=== PATIENT | male | born 1965 | race Caucasian/White ===

== ENCOUNTER 2019-03-01 13:54 | Observation (INO) | payer OTHER ==
--- NOTE | 2019-03-01 14:13 | PDOC ---
Rapid Medical Evaluation Chief Complaint: Weakness Time Seen by Provider: 03/01/19 14:10 Medical Evaluation: Allergies Allergy/AdvReac Type Severity Reaction Status Date / Time No Known Allergies Allergy Verified 03/01/19 14:08 03/01/19 14:10 I have performed a brief in-person evaluation of this patient. The patient presents with a chief complaint of: h/o Pre-Dm, HTN, HLD, c/o 1 day of lightheadedness, nausea, vomiting. no CP, no SOB, no abdominal pain, no known sick contacts, no recent travel. Pertinent physical exam findings: high blood pressure, Clear vomitus in triage, (+)nystagmus and dysmetria. WIll call Code Chang I have ordered the following: EKG, CBC, CMP, fingerstick, cardiac enzymes, CXR, Head CT The patient will proceed to the ED for further evaluation. 03/01/19 14:22 Discharge Disposition - Diagnosis Lightheadedness - Referrals - Patient Instructions - Post Discharge Activity
--- NOTE | 2019-03-01 14:17 | PDOC ---
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 He denies nay recent illness or travel and has never experienced similar symptoms. He has no other complaints and feels nauseous when sitting up. He has no other complaints. ROS GENERAL/CONSTITUTIONAL: No fever or chills. No weakness. HEAD, EYES, EARS, NOSE AND THROAT: No change in vision. No ear pain or discharge. No sore throat. CARDIOVASCULAR: No chest pain or shortness of breath RESPIRATORY: No cough, wheezing, or hemoptysis. GASTROINTESTINAL: + nausea, vomiting, No diarrhea or constipation. GENITOURINARY: No dysuria, frequency, or change in urination. MUSCULOSKELETAL: No joint or muscle swelling or pain. No neck or back pain. SKIN: No rash NEUROLOGIC: No headache, + vertigo, No loss of consciousness, or change in strength/sensation. PE GENERAL: Awake, alert, and fully oriented, in no acute distress, slight left nasolabial fold flattening HEAD: No signs of trauma, normocephalic, atraumatic EYES: eomi, + horizontal nystagmus, sclera anicteric, conjunctiva clear ENT: oropharynx clear without exudates. Moist mucosa NECK: Normal ROM, supple LUNGS: No distress, speaks full sentences, clear to auscultation bilaterally HEART: Regular rate and rhythm, normal S1 and S2, no murmurs, rubs or gallops, peripheral pulses normal and equal bilaterally. ABDOMEN: Soft, nontender, No guarding, no rebound. No masses EXTREMITIES : Normal inspection, Normal range of motion, no edema. No clubbing or cyanosis. NEUROLOGICAL: Cranial nerves II through XII grossly intact. Normal speech, no focal sensorimotor deficits, severe unsteadiness on gait, finger to nose and heel to biswas unimpaired SKIN: Warm, Dry, normal turgor, no rashes or lesions noted MDM DDX including but not limited to: posterior stroke, peripheral vertigo including menieres disease vs labrynthitis vs BPPV W/U: - cbc, cmp, caogs, ekg, cxr, head ct TX: - meclizine, zofran, ativan ED Course: code hernandez called ekg nsr at 44bpm pending neurology callback [id number]: Neurology Dr. Boyd discussed case, recommend admission and MRI/MRA, no tPA Labs wnl, plan for admission Kathrine Guzman, PGY2 Emergency Medicine Past History - Past Medical History Allergies/Adverse Reactions: Allergies Allergy/AdvReac Type Severity Reaction Status Date / Time No Known Allergies Allergy Verified 03/01/19 14:08 COPD: No Diabetes: No (PRE DIABETIC) HTN: Yes Hypercholesterolemia: Yes - Immunization History Immunization Up to Date: Yes - Psycho Social/Smoking Cessation Hx Smoking History: Never smoked Hx Alcohol Use: No Drug/Substance Use Hx: No *Physical Exam - Vital Signs Last Vital Signs Temp Pulse Resp BP Pulse Ox 98.2 F 47 L 18 187/101 H 100 03/01/19 14:09 03/01/19 14:09 03/01/19 14:09 03/01/19 14:09 03/01/19 14:09 ED Treatment Course - LABORATORY CBC & Chemistry Diagram: 03/01/19 15:06 03/01/19 15:06 Discharge - Discharge Information Problems reviewed: Yes Clinical Impression/Diagnosis: Lightheadedness, Vertigo, Nystagmus Condition: Stable Disposition: HOME - Admission Yes - Follow up/Referral - Patient Discharge Instructions - Post Discharge Activity
--- NOTE | 2019-03-01 14:31 | PDOC ---
Attending Attestation - Resident Resident Name: Kathrine Guzman - ED Attending Attestation I have performed the following: I have examined & evaluated the patient, The case was reviewed & discussed with the resident, I agree w/resident's findings & plan, Exceptions are as noted - HPI HPI: 03/01/19 14:27 Mr. [place] Elaine is a 53 yo man with a history of h/o Pre-Dm, HTN, HLD, c /o sudden onset of lightheadedness, nausea, vomiting. No headache No chest pain No palpitations Symptoms have been present since noon. Occurred while patient was at work. 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 No prior episodes like this 03/01/19 15:12 - Physicial Exam PE: 03/01/19 14:28 GENERAL: The patient is in no acute distress. ENT: Ears normal, nares patent, oropharynx clear without exudates. Moist mucous membranes. NECK: Normal range of motion, supple LUNGS: Breath sounds equal, clear to auscultation bilaterally. No wheezes, and no crackles. HEART:Regular rate and rhythm, normal S1 and S2 without murmur, rub or gallop. ABDOMEN: Soft, nontender, normoactive bowel sounds. EXTREMITIES: Normal range of motion, no edema. NEUROLOGICAL: Cranial nerves II through XII grossly intact. Normal speech. Patient has horizontal nystagmus. No other cranial nerve deficit. Does have questionable flattening of the right nasolabial fold No sensory deficits Motor strength is 5/5 in all extremities See NIHSS SKIN: Warm, Dry, normal turgor, no rashes or lesions noted. 03/01/19 15:12 - Critical Care Time Total Critical Care Time: 60 Critical Care Statement: The care of this patient involved high complexity decision making to prevent further life threatening deterioration of the patient 's condition and/or to evaluate & treat vital organ system(s) failure or risk of failure. - Medical Decision Making 03/01/19 14:28 53 yo M with risk factors presenting with sudden onset of generalized weakness, nystagmus, vertigo. Differential diagnosis includes but is not limited to: Benign positional vertigo, Mnire's disease, posterior stroke, vertebral artery dissection, intracranial mass, intracranial hemorrhage We will do: Patient was made a "code benjamin" Labs EKG Chest x-ray IV fluids Neurology consult Reassess EKG: Sinus rhythm, rate of 44 bpm, axis is normal, intervals are normal, no ST elevation or depression Sinus bradycardia 03/01/19 15:11 Unable to ambulate this patient I have sat him up He becomes very vertiginous and vomits Awaiting callback from neurology Meclizine, Ativan and Zofran ordered 03/01/19 15:14 03/01/19 15:49 Laboratory Tests 03/01/19 03/01/19 15:06 15:06 WBC 10.5 H Hgb 14.7 Hct 44.3 Plt Count 238 Alcohol, Quantitative < 3.0 03/01/19 15:49 Case reviewed with Neuro They agree with plan NOT TO TPA Plan for MRI, MRA 03/01/19 16:24 Laboratory Tests 03/01/19 15:06 BUN 16.1 Creatinine 0.8 Creatine Kinase 51 Troponin I < 0.02
[2019-03-01] MEDS ORDERED: ONDANSETRON 4 MG/2 ML VIAL IVPUSH ONE (15:05)
[2019-03-01] MEDS ORDERED: MECLIZINE HCL 25 MG TABLET (FP) PO ONE (15:11)
[2019-03-01 15:15] LABS: BASO % 0.6 % (0-2.0); EOS % 0.6 % (0-4.5); HEMATOCRIT 44.3 % (35.4-49); HEMOGLOBIN 14.7 GM/dL (11.7-16.9); LYMPH % 10.7 % (8-40); MCH 28.7 pg (25.7-33.7); MCHC 33.1 g/dl (32.0-35.9); MEAN CELL VOLUME 86.5 fl (80-96); MEAN PLT VOLUME 9.5 fl (7.5-11.1); MONO % 5.2 % (3.8-10.2); NEUT % 82.9 % (42.8-82.8); PLATELET COUNT 238 K/MM3 (134-434); RBC 5.12 M/mm3 (4.00-5.60); RDW 13.8 % (11.9-15.9); WHITE BLOOD COUNT 10.5 K/mm3 (4.0-10.0)
[2019-03-01] MEDS ORDERED: MECLIZINE HCL 25 MG TABLET (FP) ONE (15:28)
[2019-03-01] MEDS ORDERED: LORazepam 2 MG/ML SDV VIAL ONE (15:29)
[2019-03-01] MEDS ORDERED: ONDANSETRON 4 MG/2 ML VIAL ONE (15:29)
[2019-03-01] MEDS ORDERED: ASPIRIN 81 MG CHEWABLE TABLETS PO ONE (15:46)
[2019-03-01] MEDS ORDERED: ASPIRIN 81 MG CHEWABLE TABLETS ONE (15:54)
[2019-03-01 15:56] LABS: ALBUMIN 4.2 g/dl (3.4-5.0); ALK PHOS 119 U/L (45-117); ANION GAP 5 MMOL/L (8-16); BILIRUBIN,TOTAL 0.6 mg/dL (0.2-1); BLOOD UREA NITROGEN 16.1 mg/dL (7-18); CALCIUM 8.9 mg/dL (8.5-10.1); CHLORIDE 103 mmol/L (98-107); CO2 30 mmol/L (21-32); CREATININE 0.8 mg/dL (0.55-1.3); GLUCOSE,RANDOM 132 mg/dL (74-106); PHOSPHOROUS 2.7 mg/dL (2.5-4.9); POTASSIUM 3.5 mmol/L (3.5-5.1); SGOT/AST 22 U/L (15-37); SGPT/ALT 28 U/L (13-61); SODIUM 138 mmol/L (136-145); TOT PROT 7.3 g/dl (6.4-8.2)
[2019-03-01 16:15] LABS: URINE APPEARANCE CLEAR; URINE BILIRUBIN NEGATIVE (NEGATIVE); URINE COLOR YELLOW; URINE GLUCOSE (UA) NEGATIVE (NEGATIVE); URINE KETONE NEGATIVE (NEGATIVE); URINE LEUK ESTERASE NEGATIVE (NEGATIVE); URINE NITRITE NEGATIVE (NEGATIVE); URINE PROTEIN NEGATIVE (NEGATIVE); URINE UROBILINOGEN 0.2 mg/dL (0.2-1.0)
[2019-03-01 16:30] LABS: COCAINE, UR NEGATIVE ng/ml (CUTOFF=300); METHADONE, UR NEGATIVE ng/ml (CUTOFF=300); OPIATES, URI NEGATIVE ng/ml (CUTOFF=300); PHENCYCLIDINE,URINE NEGATIVE ng/ml (CUTOFF=25); URINE AMPHETAMINES NEGATIVE ng/ml (CUTOFF=500); URINE BARBITURATES NEGATIVE ng/ml (CUTOFF=200); URINE BENZODIAZEPINES NEGATIVE ng/ml (CUTOFF=200)
--- NOTE | 2019-03-01 19:18 | HP ---
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 He denies nay recent illness or travel and has never experienced similar symptoms. He has no other complaints and feels nauseous when sitting up. He has no other complaints. - Past Medical History Cardiovascular: Yes: HTN, Hyperlipdemia - Smoking History Smoking history: Never smoked - Alcohol/Substance Use Hx Alcohol Use: No Home Medications - Allergies Allergies/Adverse Reactions: Allergies Allergy/AdvReac Type Severity Reaction Status Date / Time No Known Allergies Allergy Verified 03/01/19 14:08 - Home Medications Home Medications: Ambulatory Orders Amlodipine Besylate [Norvasc -] 10 mg PO DAILY 03/01/19 Atorvastatin Ca [Lipitor] 40 mg PO HS 03/01/19 Lisinopril/Hydrochlorothiazide [Lisinopril-Hctz 10-12.5 mg Tab] 1 each PO DAILY 03/01/19 Physical Examination Vital Signs: Vital Signs Temperature 98.2 F 03/01/19 14:09 Pulse Rate 46 L 03/01/19 16:00 Respiratory Rate 18 03/01/19 16:00 Blood Pressure 147/72 03/01/19 16:00 O2 Sat by Pulse Oximetry (%) 98 03/01/19 16:00 Constitutional: Yes: No Distress HENT: Yes: Atraumatic Neck: Yes: Supple Cardiovascular: Yes: Regular Rate and Rhythm Respiratory: Yes: CTA Bilaterally Gastrointestinal: Yes: Normal Bowel Sounds Extremities: Yes: WNL Edema: No Neurological: Yes: Alert, Oriented Labs: CBC, BMP 03/01/19 15:06 03/01/19 15:06 Problem List - Problems (1) HTN (hypertension) Assessment/Plan: on meds monitor Code(s): I10 - ESSENTIAL (PRIMARY) HYPERTENSION Qualifiers: Hypertension type: essential hypertension Qualified Code(s): I10 - Essential (primary) hypertension (2) Hypercholesterolemia Assessment/Plan: on meds Code(s): E78.00 - PURE HYPERCHOLESTEROLEMIA, UNSPECIFIED (3) Lightheadedness Assessment/Plan: pt eval Code(s): R42 - DIZZINESS AND GIDDINESS (4) Vertigo Assessment/Plan: on meclizine pt eval Code(s): R42 - DIZZINESS AND GIDDINESS Assessment/Plan Active Medications Generic Name Dose Route Start Last Admin Trade Name Freq PRN Reason Stop Dose Admin Acetaminophen 650 mg 03/01/19 19:20 Tylenol - PO Q6H PRN FEVER Amlodipine Besylate 10 mg 03/02/19 10:00 03/03/19 10:32 Norvasc - PO 10 mg DAILY ALBERTO Administration Atorvastatin Calcium 40 mg 03/01/19 22:00 03/02/19 21:16 Lipitor - PO 40 mg HS ALBERTO Administration Hydrochlorothiazide 12.5 mg 03/02/19 10:00 03/03/19 10:32 Hctz - PO 12.5 mg DAILY ALBERTO Administration Lisinopril 10 mg 03/02/19 10:00 03/03/19 10:32 Prinivil PO 10 mg DAILY ALBERTO Administration Ondansetron HCl 4 mg 03/01/19 19:20 Zofran Injection IVPB Q4H PRN NAUSEA AND/OR VOMITING
[2019-03-01] MEDS ORDERED: ONDANSETRON 4 MG/2 ML VIAL IVPB PRN (19:20)
[2019-03-01] MEDS ORDERED: ACETAMINOPHEN 325 MG TABLET (FP) PO PRN (19:20)
[2019-03-01] MEDS ORDERED: MECLIZINE HCL 25 MG TABLET (FP) PO SCH (19:30)
[2019-03-01] MEDS ORDERED: ATORVASTATIN CA 40 MG TABLET (FP) ONE (22:53)
[2019-03-01] MEDS ORDERED: MECLIZINE HCL 12.5 MG TABLET ONE (22:53)
[2019-03-01] MEDS: ATORVASTATIN CA 40 MG TABLET (FP) PO SCH (22:56)
[2019-03-01] MEDS: MECLIZINE HCL 25 MG TABLET (FP) PO SCH (22:56)
[2019-03-02] MEDS: HYDROCHLOROTHIAZIDE 12.5 MG CAPSULE (FP) PO SCH (09:13)
[2019-03-02] MEDS: MECLIZINE HCL 25 MG TABLET (FP) PO SCH ×4 (09:13→21:16)
[2019-03-02] MEDS: amLODIPine BESYLATE 10 MG TABLET (FP) PO SCH (09:13)
[2019-03-02] MEDS: LISINOPRIL 10 MG TABLET (FP) PO SCH (09:13)
[2019-03-02] MEDS ORDERED: PATIENT'S OWN MEDICATION (NON-FORMULARY) (Lisinopril/Hydrochlorothiazide [Lisinopril-Hctz PO SCH (10:00)
--- NOTE | 2019-03-02 11:19 | CON.CARD ---
Consult Consult Specialty:: Cardiology Referred by:: Dr. Ortiz Reason for Consultation:: Cardiac evaluation - History of Present Illness Chief Complaint: Dizziness History of Present Illness: Patient is a 53 year old male with underlying history of pre-diabetes mellitus, HTN and hypercholesterolemia who presented to ED with dizziness referable to possible vertigo, episode of nausea, vomiting and unsteadiness which began suddenly yesterday. He states that he feels better today. He denies chest pain, shortness of breath or palpitations. He denies paroxysmal nocturnal dyspnea or orthopnea. He denies fever or chills. He denies nausea, vomiting, diarrhea or abdominal pain at this time. He denies headache or lightheadedness at this time. He denies prior syncopal episodes. - History Source History Provided By: Patient, Medical Record Limitations to Obtaining History: Language Barrier (assistance by acquisition manager) - Past Medical History Cardio/Vascular: Yes: HTN, Hyperlipdemia Endocrine: Yes: Diabetes Mellitus (Pre-diabetes ) - Past Surgical History Past Surgical History: Yes: None - Alcohol/Substance Use Hx Alcohol Use: No - Smoking History Smoking history: Never smoked Home Medications - Allergies Allergies/Adverse Reactions: Allergies Allergy/AdvReac Type Severity Reaction Status Date / Time No Known Allergies Allergy Verified 03/01/19 14:08 - Home Medications Home Medications: Ambulatory Orders Amlodipine Besylate [Norvasc -] 10 mg PO DAILY 03/01/19 Atorvastatin Ca [Lipitor] 40 mg PO HS 03/01/19 Lisinopril/Hydrochlorothiazide [Lisinopril-Hctz 10-12.5 mg Tab] 1 each PO DAILY 03/01/19 Family Medical History Other Family History: CAD, HTN Review of Systems - Review of Systems Constitutional: denies: Chills, Fever Cardiovascular: denies: Chest Pain, Palpitations, Shortness of Breath Respiratory: denies: Cough, Hemoptysis, Orthopnea, PND, SOB, SOB on Exertion, Wheezing Gastrointestinal: denies: Abdominal Pain, Constipation, Diarrhea, Melena, Nausea , Rectal Bleeding, Vomiting Genitourinary: denies: Dysuria, Hematuria Musculoskeletal: denies: Joint Pain Neurological: reports: Dizziness. denies: Headache, Seizure, Syncope Vital Signs: Vital Signs Temperature 98.7 F 03/02/19 08:50 Pulse Rate 83 03/02/19 08:50 Respiratory Rate 18 03/02/19 08:50 Blood Pressure 156/96 03/02/19 08:50 O2 Sat by Pulse Oximetry (%) 99 03/02/19 08:51 Eyes: Yes: PERRL HENT: Yes: Atraumatic Neck: Yes: Supple Respiratory: Yes: CTA Bilaterally Gastrointestinal: Yes: Normal Bowel Sounds, Soft. No: Tenderness Cardiovascular: Yes: Regular Rate and Rhythm JVD: No PMI: Non-Displaced Heart Sounds: Yes: S1, S2 Murmur: No: Systolic Murmur, Diastolic Murmur Edema: No - Other Data Labs, Other Data: CBC, BMP 03/01/19 15:06 03/01/19 15:06 Troponin, BNP 03/01/19 15:06 Troponin I < 0.02 Laboratory Results - last 24 hr 03/01/19 03/01/19 03/01/19 14:19 15:06 15:06 WBC 10.5 H RBC 5.12 Hgb 14.7 Hct 44.3 MCV 86.5 MCH 28.7 MCHC 33.1 RDW 13.8 Plt Count 238 MPV 9.5 Absolute Neuts (auto) 8.7 H Neutrophils % 82.9 H Lymphocytes % 10.7 Monocytes % 5.2 Eosinophils % 0.6 Basophils % 0.6 Nucleated RBC % 0 Sodium Potassium Chloride Carbon Dioxide Anion Gap BUN Creatinine Est GFR (CKD-EPI)AfAm Est GFR (CKD-EPI)NonAf POC Glucometer 136 Random Glucose Calcium Phosphorus Magnesium Total Bilirubin AST ALT Alkaline Phosphatase Creatine Kinase Troponin I Total Protein Albumin Urine Color Urine Appearance Urine pH Ur Specific [place] Urine Protein Urine Glucose (UA) Urine Ketones Urine Blood Urine Nitrite Urine Bilirubin Urine Urobilinogen Ur Leukocyte Esterase Opiates Screen Methadone Screen Barbiturate Screen Phencyclidine Screen Ur Amphetamines Screen MDMA (Ecstasy) Screen Benzodiazepines Screen Cocaine Screen U Marijuana (THC) Screen Alcohol, Quantitative < 3.0 03/01/19 03/01/19 03/01/19 15:06 15:38 15:38 WBC RBC Hgb Hct MCV MCH MCHC RDW Plt Count MPV Absolute Neuts (auto) Neutrophils % Lymphocytes % Monocytes % Eosinophils % Basophils % Nucleated RBC % Sodium 138 Potassium 3.5 Chloride 103 Carbon Dioxide 30 Anion Gap 5 L BUN 16.1 Creatinine 0.8 Est GFR (CKD-EPI)AfAm 119.88 Est GFR (CKD-EPI)NonAf 103.43 POC Glucometer Random Glucose 132 H Calcium 8.9 Phosphorus 2.7 Magnesium 2.0 Total Bilirubin 0.6 AST 22 ALT 28 Alkaline Phosphatase 119 H Creatine Kinase 51 Troponin I < 0.02 Total Protein 7.3 Albumin 4.2 Urine Color Yellow Urine Appearance Clear Urine pH 7.0 Ur Specific [place] 1.020 Urine Protein Negative Urine Glucose (UA) Negative Urine Ketones Negative Urine Blood Negative Urine Nitrite Negative Urine Bilirubin Negative Urine Urobilinogen 0.2 Ur Leukocyte Esterase Negative Opiates Screen Negative Methadone Screen Negative Barbiturate Screen Negative Phencyclidine Screen Negative Ur Amphetamines Screen Negative MDMA (Ecstasy) Screen Negative Benzodiazepines Screen Negative Cocaine Screen Negative U Marijuana (THC) Screen Negative Alcohol, Quantitative Sinus bradycardia Echo: Pending Imaging - Results Chest X-ray: Report Reviewed (Unremarkable) Cat Scan: Report Reviewed (Head CT unremarkable) Problem List - Problems (1) HTN (hypertension) Code(s): I10 - ESSENTIAL (PRIMARY) HYPERTENSION (2) Hypercholesterolemia Code(s): E78.00 - PURE HYPERCHOLESTEROLEMIA, UNSPECIFIED (3) Lightheadedness Code(s): R42 - DIZZINESS AND GIDDINESS (4) Vertigo Code(s): R42 - DIZZINESS AND GIDDINESS Assessment/Plan 1. Dizziness likely vertigo, etiology to be determined 2. HTN 3. Hypercholesterolemia PLAN: 1. Continue Amlodipine 10 mg QD, Lisinopril 10 mg QD and HCTZ 12.5 mg QD 2. Continue Atorvastatin 40 mg QD 3. Continue Antivert as needed 4. Echocardiography to assess LV/RV and valvular function Further plans are to follow Eber Cross MD
--- NOTE | 2019-03-02 12:45 | ECHO ---
Version: 1 Name: LAMONTE BONILLA Exam: Adult Echocardiogram Study Date: 03/02/2019, 11:51 AM Age: 53 Years MMode/2D Measurements & Calculations IVSd: 1.07 cm LVIDs: 3.0 cm LVIDd: 4.9 cm LVPWd: 1.05 cm LAV (MOD-bp): 50.1 ml LVOT diam: 2.03 cm Ao root diam: 2.9 cm LA dimension: 3.6 cm Doppler Measurements & Calculations MV E max da: 56.3 cm/sec Med E/e': 11.0 MV A max da: 82.9 cm/sec Med Peak E' Da: 5.1 cm/sec MV E/A: 0.68 Lat E/e': 10.4 Lat Peak E' Da: 5.4 cm/sec MR max P.0 mmHg Ao max P.1 mmHg Ao V2 max: 150.7 cm/sec TR max da: 228.0 cm/sec TR max P.8 mmHg Left Ventricle The left ventricular size, thickness and function are normal. Ejection Fraction = 65%. Left Ventricu lar Filling pattern is normal for age. Right Ventricle The right ventricle is normal in size and function. Atria The left atrium is mildly dilated. Right atrial size is normal. Mitral Valve The mitral valve is normal in structure and function. There is trace mitral regurgitation. Tricuspid Valve The tricuspid valve is normal in structure and function. There is trace tricuspid regurgitation. Rig ht ventricular systolic pressure is normal. Right ventricular systolic pressure is 32 mmhg. Aortic Valve The aortic valve is normal in structure and function. Pulmonic Valve The pulmonic valve is not well seen, but is grossly normal. Great Vessels The aortic root is normal size. Normal aortic arch, descending and ascending aorta. Pericardium/Pleura There is no pericardial effusion. Summary Statements The left ventricular size, thickness and function are normal. Ejection Fraction = 65%. The right ventricle is normal in size and function. The left atrium is mildly dilated. Right atrial size is normal. The aortic valve is normal in structure and function. The mitral valve is normal in structure and function. MD Kayli Guerrero03/02/2019, 11:45 AM Ordering Physician: Eber Cross Performed By: Niya Damico
--- NOTE | 2019-03-02 12:52 | EKG ---
Test Reason : Blood Pressure : / mmHG Vent. Rate : 044 BPM Atrial Rate : 044 BPM P-R Int : 176 ms QRS Dur : 100 ms QT Int : 532 ms P-R-T Axes : 043 013 022 degrees QTc Int : 454 ms MARKED SINUS BRADYCARDIA ABNORMAL ECG NO PREVIOUS ECGS AVAILABLE Confirmed by Breezy Hutton MD ([id number]) on 03/02/2019 12:52:09 PM Referred By: Confirmed By:Breezy Hutton MD
[2019-03-02] MEDS ORDERED: MECLIZINE HCL 25 MG TABLET (FP) ONE ×2 (14:07→18:17)
--- NOTE | 2019-03-02 15:30 | CON.NEURO ---
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 He denies nay recent illness or travel and has never experienced similar symptoms. He has no other complaints and feels nauseous when sitting up. He has no other complaints. UA (-) , CT HD (-) - Past Medical History Cardio/Vascular: Yes: HTN, Hyperlipdemia Endocrine: Yes: Diabetes Mellitus (Pre-diabetes ) - Past Surgical History Past Surgical History: Yes: None - Alcohol/Substance Use Hx Alcohol Use: No - Smoking History Smoking history: Never smoked Home Medications - Allergies Allergies/Adverse Reactions: Allergies Allergy/AdvReac Type Severity Reaction Status Date / Time No Known Allergies Allergy Verified 03/01/19 14:08 - Home Medications Home Medications: Ambulatory Orders Amlodipine Besylate [Norvasc -] 10 mg PO DAILY 03/01/19 Atorvastatin Ca [Lipitor] 40 mg PO HS 03/01/19 Lisinopril/Hydrochlorothiazide [Lisinopril-Hctz 10-12.5 mg Tab] 1 each PO DAILY 03/01/19 Physical Exam-Neuro Vital Signs: Vital Signs Temperature 98.2 F 03/02/19 13:54 Pulse Rate 69 03/02/19 13:54 Respiratory Rate 18 03/02/19 13:54 Blood Pressure 146/86 03/02/19 13:54 O2 Sat by Pulse Oximetry (%) 97 03/02/19 13:54 Labs: CBC, BMP 03/01/19 15:06 03/01/19 15:06 - Neuro Exam Level Of Consciousness: Yes: Alert (EOMI, ? 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 He denies nay recent illness or travel and has never experienced similar symptoms. He has no other complaints and feels nauseous when sitting up. He has no other complaints. UA (-) , CT HD (-) AP : suspect peripheral vertigo CT HD (-) no central features on exam given RF reasonable to check MRI to ensure no posterior circulation issue ASA, statin if MRI (-) can get outpt FU DR COX
--- NOTE | 2019-03-02 19:21 | PN ---
Progress Note, Physician History of Present Illness: feeling better - Current Medication List Current Medications: Active Medications Acetaminophen (Tylenol -) 650 mg PO Q6H PRN PRN Reason: FEVER Amlodipine Besylate (Norvasc -) 10 mg PO DAILY [facility] Last Admin: 03/02/19 09:13 Dose: 10 mg Atorvastatin Calcium (Lipitor -) 40 mg PO HS [facility] Last Admin: 03/01/19 22:56 Dose: 40 mg Hydrochlorothiazide (Hctz -) 12.5 mg PO DAILY [facility] Last Admin: 03/02/19 09:13 Dose: 12.5 mg Lisinopril (Prinivil) 10 mg PO DAILY [facility] Last Admin: 03/02/19 09:13 Dose: 10 mg Meclizine HCl (Antivert -) 25 mg PO QID [facility] Last Admin: 03/02/19 18:18 Dose: 25 mg Ondansetron HCl (Zofran Injection) 4 mg IVPB Q4H PRN PRN Reason: NAUSEA AND/OR VOMITING - Objective Vital Signs: Vital Signs Temperature 98.2 F 03/02/19 18:31 Pulse Rate 75 03/02/19 18:31 Respiratory Rate 18 03/02/19 18:31 Blood Pressure 167/100 03/02/19 18:31 O2 Sat by Pulse Oximetry (%) 99 03/02/19 18:31 Constitutional: Yes: No Distress HENT: Yes: Atraumatic Neck: Yes: Supple Cardiovascular: Yes: Regular Rate and Rhythm Respiratory: Yes: CTA Bilaterally Gastrointestinal: Yes: Normal Bowel Sounds Extremities: Yes: WNL Edema: No Neurological: Yes: Alert, Oriented Labs: CBC, BMP 03/01/19 15:06 03/01/19 15:06 Problem List - Problems (1) HTN (hypertension) Assessment/Plan: on meds monitor Code(s): I10 - ESSENTIAL (PRIMARY) HYPERTENSION Qualifiers: Hypertension type: essential hypertension Qualified Code(s): I10 - Essential (primary) hypertension (2) Hypercholesterolemia Assessment/Plan: on meds Code(s): E78.00 - PURE HYPERCHOLESTEROLEMIA, UNSPECIFIED (3) Lightheadedness Assessment/Plan: pt eval Code(s): R42 - DIZZINESS AND GIDDINESS (4) Vertigo Assessment/Plan: on meclizine Code(s): R42 - DIZZINESS AND GIDDINESS
[2019-03-02 20:41] VITALS: BMI 32.9
[2019-03-02] MEDS: ATORVASTATIN CA 40 MG TABLET (FP) PO SCH (21:16)
--- NOTE | 2019-03-03 09:15 | PN ---
Progress Note, Physician History of Present Illness: No further dizziness. - Current Medication List Current Medications: Active Medications Acetaminophen (Tylenol -) 650 mg PO Q6H PRN PRN Reason: FEVER Amlodipine Besylate (Norvasc -) 10 mg PO DAILY [facility] Last Admin: 03/02/19 09:13 Dose: 10 mg Atorvastatin Calcium (Lipitor -) 40 mg PO HS [facility] Last Admin: 03/02/19 21:16 Dose: 40 mg Hydrochlorothiazide (Hctz -) 12.5 mg PO DAILY [facility] Last Admin: 03/02/19 09:13 Dose: 12.5 mg Lisinopril (Prinivil) 10 mg PO DAILY [facility] Last Admin: 03/02/19 09:13 Dose: 10 mg Meclizine HCl (Antivert -) 25 mg PO QID [facility] Last Admin: 03/02/19 21:16 Dose: 25 mg Ondansetron HCl (Zofran Injection) 4 mg IVPB Q4H PRN PRN Reason: NAUSEA AND/OR VOMITING - Objective Vital Signs: Vital Signs Temperature 97.8 F 03/03/19 06:00 Pulse Rate 61 03/03/19 06:00 Respiratory Rate 18 03/03/19 06:00 Blood Pressure 138/83 03/03/19 06:00 O2 Sat by Pulse Oximetry (%) 98 03/03/19 04:04 Constitutional: Yes: No Distress, Calm Neck: Yes: Supple Cardiovascular: Yes: Regular Rate and Rhythm Respiratory: Yes: Regular, CTA Bilaterally Gastrointestinal: Yes: Normal Bowel Sounds, Soft Edema: No Labs: CBC, BMP 03/01/19 15:06 03/01/19 15:06 - ....Imaging EKG: Report Reviewed (Tele: No events) Problem List - Problems (1) HTN (hypertension) Code(s): I10 - ESSENTIAL (PRIMARY) HYPERTENSION Qualifiers: Hypertension type: essential hypertension Qualified Code(s): I10 - Essential (primary) hypertension (2) Hypercholesterolemia Code(s): E78.00 - PURE HYPERCHOLESTEROLEMIA, UNSPECIFIED (3) Vertigo Code(s): R42 - DIZZINESS AND GIDDINESS Assessment/Plan 03/02/2019 Echocardiography: Normal LV and RV size and fxn, LVEF 65%, no sig valve abnl 1. Dizziness likely vertigo, etiology to be determined 2. HTN 3. Hypercholesterolemia PLAN: 1. Continue Amlodipine 10 mg QD, Lisinopril 10 mg QD and HCTZ 12.5 mg QD 2. Continue Atorvastatin 40 mg QD 3. Continue Antivert and Zofran as needed 4. F/u brain MRI to ensure no posterior circulation issue
[2019-03-03] MEDS: LISINOPRIL 10 MG TABLET (FP) PO SCH (10:32)
[2019-03-03] MEDS: amLODIPine BESYLATE 10 MG TABLET (FP) PO SCH (10:32)
[2019-03-03] MEDS: HYDROCHLOROTHIAZIDE 12.5 MG CAPSULE (FP) PO SCH (10:32)
[2019-03-03] MEDS: MECLIZINE HCL 25 MG TABLET (FP) PO SCH ×3 (10:32→17:04)
--- NOTE | 2019-03-03 11:25 | PN ---
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 He denies nay recent illness or travel and has never experienced similar symptoms. He has no other complaints and feels nauseous when sitting up. He has no other complaints. UA (-) , CT HD (-) FU : MRI prelim--no stroke, WNL - Past Medical History Cardio/Vascular: Yes: HTN, Hyperlipdemia Endocrine: Yes: Diabetes Mellitus (Pre-diabetes ) - Past Surgical History Past Surgical History: Yes: None - Alcohol/Substance Use Hx Alcohol Use: No - Smoking History Smoking history: Never smoked Home Medications - Allergies Allergies/Adverse Reactions: Allergies Allergy/AdvReac Type Severity Reaction Status Date / Time No Known Allergies Allergy Verified 03/01/19 14:08 - Home Medications Home Medications: Ambulatory Orders Amlodipine Besylate [Norvasc -] 10 mg PO DAILY 03/01/19 Atorvastatin Ca [Lipitor] 40 mg PO HS 03/01/19 Lisinopril/Hydrochlorothiazide [Lisinopril-Hctz 10-12.5 mg Tab] 1 each PO DAILY 03/01/19 Physical Exam-Neuro Vital Signs: Vital Signs Period Temp Pulse Resp BP Sys/Tavares Pulse Ox Last 24 Hr 97.8 F-98.2 F 58-75 18-18 138-167/83-102 96-99 Labs: CBCD WBC 10.5 K/mm3 (4.0-10.0) H 03/01/19 15:06 RBC 5.12 M/mm3 (4.00-5.60) 03/01/19 15:06 Hgb 14.7 GM/dL (11.7-16.9) 03/01/19 15:06 Hct 44.3 % (35.4-49) 03/01/19 15:06 MCV 86.5 fl (80-96) 03/01/19 15:06 MCHC 33.1 g/dl (32.0-35.9) 03/01/19 15:06 RDW 13.8 % (11.9-15.9) 03/01/19 15:06 Plt Count 238 K/MM3 (134-434) 03/01/19 15:06 MPV 9.5 fl (7.5-11.1) 03/01/19 15:06 CMP Sodium 138 mmol/L (136-145) 03/01/19 15:06 Potassium 3.5 mmol/L (3.5-5.1) 03/01/19 15:06 Chloride 103 mmol/L (98-107) 03/01/19 15:06 Carbon Dioxide 30 mmol/L (21-32) 03/01/19 15:06 Anion Gap 5 MMOL/L (8-16) L 03/01/19 15:06 BUN 16.1 mg/dL (7-18) 03/01/19 15:06 Creatinine 0.8 mg/dL (0.55-1.3) 03/01/19 15:06 Calcium 8.9 mg/dL (8.5-10.1) 03/01/19 15:06 Total Bilirubin 0.6 mg/dL (0.2-1) 03/01/19 15:06 AST 22 U/L (15-37) 03/01/19 15:06 ALT 28 U/L (13-61) 03/01/19 15:06 Alkaline Phosphatase 119 U/L (45-117) H 03/01/19 15:06 Total Protein 7.3 g/dl (6.4-8.2) 03/01/19 15:06 Albumin 4.2 g/dl (3.4-5.0) 03/01/19 15:06 - Neuro Exam Level Of Consciousness: Yes: Alert (EOMI, ? 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 He denies nay recent illness or travel and has never experienced similar symptoms. He has no other complaints and feels nauseous when sitting up. He has no other complaints. UA (-) , CT HD (-) AP : suspect peripheral vertigo CT HD (-) no central features on exam ASA, statin FU official MRI, prelim (-) can likely Dc today thereafter DR [facility] Problem List - Problems (1) HTN (hypertension) Code(s): I10 - ESSENTIAL (PRIMARY) HYPERTENSION Qualifiers: Hypertension type: essential hypertension Qualified Code(s): I10 - Essential (primary) hypertension (2) Hypercholesterolemia Code(s): E78.00 - PURE HYPERCHOLESTEROLEMIA, UNSPECIFIED (3) Vertigo Code(s): R42 - DIZZINESS AND GIDDINESS
--- NOTE | 2019-03-03 18:14 | PN ---
Progress Note, Physician - Current Medication List Current Medications: Active Medications Acetaminophen (Tylenol -) 650 mg PO Q6H PRN PRN Reason: FEVER Amlodipine Besylate (Norvasc -) 10 mg PO DAILY [facility] Last Admin: 03/03/19 10:32 Dose: 10 mg Atorvastatin Calcium (Lipitor -) 40 mg PO HS [facility] Last Admin: 03/02/19 21:16 Dose: 40 mg Hydrochlorothiazide (Hctz -) 12.5 mg PO DAILY [facility] Last Admin: 03/03/19 10:32 Dose: 12.5 mg Lisinopril (Prinivil) 10 mg PO DAILY [facility] Last Admin: 03/03/19 10:32 Dose: 10 mg Ondansetron HCl (Zofran Injection) 4 mg IVPB Q4H PRN PRN Reason: NAUSEA AND/OR VOMITING - Objective Vital Signs: Vital Signs Temperature 97.8 F 03/03/19 14:00 Pulse Rate 60 03/03/19 14:00 Respiratory Rate 18 03/03/19 14:00 Blood Pressure 146/90 03/03/19 14:00 O2 Sat by Pulse Oximetry (%) 100 03/03/19 12:04 Constitutional: Yes: No Distress HENT: Yes: Atraumatic Neck: Yes: Supple Cardiovascular: Yes: Regular Rate and Rhythm Respiratory: Yes: CTA Bilaterally Gastrointestinal: Yes: Normal Bowel Sounds Extremities: Yes: WNL Labs: CBC, BMP 03/01/19 15:06 03/01/19 15:06 Problem List - Problems (1) HTN (hypertension) Assessment/Plan: on meds monitor Code(s): I10 - ESSENTIAL (PRIMARY) HYPERTENSION Qualifiers: Hypertension type: essential hypertension Qualified Code(s): I10 - Essential (primary) hypertension (2) Hypercholesterolemia Assessment/Plan: on meds Code(s): E78.00 - PURE HYPERCHOLESTEROLEMIA, UNSPECIFIED (3) Lightheadedness Assessment/Plan: pt eval Code(s): R42 - DIZZINESS AND GIDDINESS (4) Vertigo Assessment/Plan: on meclizine Code(s): R42 - DIZZINESS AND GIDDINESS
[2019-03-03] MEDS ORDERED: LISINOPRIL 10 MG TABLET (FP) PO ONE (18:51)
[2019-03-03] MEDS: ATORVASTATIN CA 40 MG TABLET (FP) PO SCH (21:40)
[2019-03-04 07:59] LABS: BASO % 0.7 % (0-2.0); EOS % 0.7 % (0-4.5); HEMATOCRIT 44.7 % (35.4-49); HEMOGLOBIN 15.2 GM/dL (11.7-16.9); LYMPH % 17.1 % (8-40); MCH 29.2 pg (25.7-33.7); MCHC 33.9 g/dl (32.0-35.9); MEAN CELL VOLUME 86.2 fl (80-96); MEAN PLT VOLUME 9.4 fl (7.5-11.1); MONO % 8.5 % (3.8-10.2); PLATELET COUNT 252 K/MM3 (134-434); RBC 5.18 M/mm3 (4.00-5.60); RDW 14.3 % (11.9-15.9); WHITE BLOOD COUNT 7.9 K/mm3 (4.0-10.0)
[2019-03-04 08:28] LABS: ALBUMIN 3.6 g/dl (3.4-5.0); BILIRUBIN,TOTAL 0.6 mg/dL (0.2-1); BLOOD UREA NITROGEN 18.5 mg/dL (7-18); CREATININE 0.9 mg/dL (0.55-1.3); POTASSIUM 3.6 mmol/L (3.5-5.1); TOT PROT 6.8 g/dl (6.4-8.2)
--- NOTE | 2019-03-04 09:18 | PN ---
Progress Note, Physician History of Present Illness: No further dizziness. Brain MRI negative for stroke. - Current Medication List Current Medications: Active Medications Acetaminophen (Tylenol -) 650 mg PO Q6H PRN PRN Reason: FEVER Amlodipine Besylate (Norvasc -) 10 mg PO DAILY [facility] Last Admin: 03/03/19 10:32 Dose: 10 mg Atorvastatin Calcium (Lipitor -) 40 mg PO HS [facility] Last Admin: 03/03/19 21:40 Dose: 40 mg Hydrochlorothiazide (Hctz -) 12.5 mg PO DAILY [facility] Last Admin: 03/03/19 10:32 Dose: 12.5 mg Lisinopril (Prinivil) 20 mg PO DAILY [facility] Ondansetron HCl (Zofran Injection) 4 mg IVPB Q4H PRN PRN Reason: NAUSEA AND/OR VOMITING - Objective Vital Signs: Vital Signs Temperature 98.2 F 03/04/19 05:48 Pulse Rate 56 L 03/04/19 05:48 Respiratory Rate 20 03/04/19 05:48 Blood Pressure 134/88 03/04/19 05:48 O2 Sat by Pulse Oximetry (%) 98 03/03/19 20:49 Constitutional: Yes: No Distress, Calm Neck: Yes: Supple Cardiovascular: Yes: Regular Rate and Rhythm Respiratory: Yes: Regular, CTA Bilaterally Gastrointestinal: Yes: Normal Bowel Sounds, Soft Edema: No Labs: CBC, BMP 03/04/19 06:12 03/04/19 06:12 - ....Imaging EKG: Report Reviewed (Tele: No events) Problem List - Problems (1) HTN (hypertension) Code(s): I10 - ESSENTIAL (PRIMARY) HYPERTENSION Qualifiers: Hypertension type: essential hypertension Qualified Code(s): I10 - Essential (primary) hypertension (2) Hypercholesterolemia Code(s): E78.00 - PURE HYPERCHOLESTEROLEMIA, UNSPECIFIED (3) Vertigo Code(s): R42 - DIZZINESS AND GIDDINESS Assessment/Plan 03/02/2019 Echocardiography: Normal LV and RV size and fxn, LVEF 65%, no sig valve abnl 03/03/2019 Brain MRO: No acute or subacute stroke 1. Dizziness likely vertigo, etiology to be determined 2. HTN 3. Hypercholesterolemia PLAN: 1. Continue Amlodipine 10 mg QD, Lisinopril 10 mg QD and HCTZ 12.5 mg QD 2. Continue Atorvastatin 40 mg QD 3. Continue Antivert and Zofran as needed 4. D/c planning
[2019-03-04] MEDS: HYDROCHLOROTHIAZIDE 12.5 MG CAPSULE (FP) PO SCH (09:58)
[2019-03-04] MEDS: amLODIPine BESYLATE 10 MG TABLET (FP) PO SCH (09:58)
[2019-03-04] MEDS ORDERED: LISINOPRIL 10 MG TABLET (FP) PO SCH (10:00)
[2019-03-04 15:29] VITALS: BP 138/85; PULSE 64; TEMP 97.9
--- NOTE | 2019-03-04 17:24 | DS ---
Physical Examination Vital Signs: Vital Signs Temperature 97.9 F 03/04/19 14:00 Pulse Rate 64 03/04/19 14:00 Respiratory Rate 20 03/04/19 12:07 Blood Pressure 138/85 03/04/19 14:00 O2 Sat by Pulse Oximetry (%) 98 03/03/19 20:49 Constitutional: Yes: No Distress HENT: Yes: Atraumatic Neck: Yes: Supple Cardiovascular: Yes: Regular Rate and Rhythm Respiratory: Yes: CTA Bilaterally Gastrointestinal: Yes: Normal Bowel Sounds Extremities: Yes: WNL Edema: No Peripheral Pulses WNL: Yes Neurological: Yes: Alert, Oriented Labs: CBC, BMP 03/04/19 06:12 03/04/19 06:12 Discharge Summary Problems reviewed: Yes Reason For Visit: LIGHTHEADEDNESS,NYSTAGMUS Current Active Problems HTN (hypertension) (Acute) Hypercholesterolemia (Acute) Lightheadedness (Acute) Nystagmus (Acute) Vertigo (Acute) Condition: Stable - Instructions - Home Medications Comprehensive Discharge Medication List: Ambulatory Orders Amlodipine Besylate [Norvasc -] 10 mg PO DAILY 03/01/19 Atorvastatin Ca [Lipitor] 40 mg PO HS 03/01/19 Lisinopril [Prinivil] 20 mg PO DAILY #30 tablet 03/04/19
== END 2019-03-04 18:26 | disposition home or self-care (01) ==
LOC: JER 13:54 → JERBED 16:58 → J4W 03-02 20:27
PROVIDERS: ADMIT Internal Medicine; ATTEND Internal Medicine
PROC: 3E033GC Introduction of Other Therapeutic Substance into Peripheral Vein, Percutaneous Approach (ICD-10-PCS; principal; 2019-03-01)
DX: R42 Dizziness and giddiness (principal); H55.00 Unspecified nystagmus; I10 Essential (primary) hypertension; E78.5 Hyperlipidemia, unspecified; R73.03 Prediabetes
CPT/HCPCS: 36415; 70450-TC; 70551-TC; 71045-TC-FY; 80053; 80307; 81003; 82550; 82962; 83735; 84100; 84484; 85025; 87086; 93005; 93010; 93306-TC; 96374; 96375; 97116-GP; 97161-GP; 99285-25; G0378